=== PATIENT | female | born 1950 | race Caucasian/White ===

== ENCOUNTER 2020-09-28 16:27 | Emergency (ER) | payer MEDICARE, BC ==
[~2020-09-28] VITALS: Ht 160 cm; Wt 73.0 kg
[2020-09-28 16:42] VITALS: BP 142/86
== END 2020-09-28 17:35 | disposition left against medical advice (07) ==
LOC: ER 16:27
DX: Z53.21 Procedure and treatment not carried out due to patient leaving prior to being seen by health care provider (principal); E11.65 Type 2 diabetes mellitus with hyperglycemia; R53.1 Weakness
CPT/HCPCS: 82962; 93005

== ENCOUNTER 2024-12-14 12:37 | Inpatient (IN) | payer OTHER, MEDICARE ==
[~2024-12-14] VITALS: Ht 162.6 cm; Wt 70.8 kg
[2024-12-14 14:29] LABS: BASOPHILS % 0.8 % (0.0-2.0); EOSINOPHILS % 3.1 % (0.0-5.0); HEMATOCRIT. 35.4 % (36.0-48.0); LYMPHOCYTES % 30.5 % (20.0-50.0); MEAN CORPUSCULAR HEMOGLOBIN 30.6 pg (28.0-32.0); MEAN PLATELET VOLUME 10.4 fl (7.4-10.4); MONOCYTES % 7.9 % (2.0-8.0); NEUTROPHILS % 57.7 % (40.0-76.0); PLATELET 285 x1000/uL (130-400); RED BLOOD CELL COUNT 3.94 mill/uL (4.2-5.4); RED CELL DISTRIBUTION WIDTH 13.6 % (11.6-14.6); WHITE BLOOD COUNT 3.5 x1000/uL (4.5-11.0)
[2024-12-14 14:37] LABS: CHLORIDE 100 mEq/L (98-107); POTASSIUM 4.1 mEq/L (3.5-5.1); SODIUM 135 mEq/L (136-145)
[2024-12-14 14:38] LABS: CALCIUM 10.2 mg/dL (8.7-10.4); CARBON DIOXIDE 24 mEq/L (21-32)
[2024-12-14 14:43] LABS: CREATININE 0.9 mg/dL (0.6-1.0); UREA NITROGEN BLOOD 14 mg/dL (9-23)
[2024-12-14 14:45] LABS: ALANINE AMINOTRANSFERASE 23 IU/L (10-49); ALBUMIN 4.2 g/dL (3.2-4.8); ASPARTATE AMINOTRANSFERASE 25 IU/L (<34)
[2024-12-14 14:46] LABS: BILIRUBIN TOTAL 0.3 mg/dL (0.1-1.0); PROTEIN TOTAL 7.2 g/dL (6.0-8.3)
[2024-12-14 14:57] LABS: TROPONIN I HIGH SENSITIVITY < 4 ng/L (3.0-34)
[2024-12-14 15:03] LABS: GLUCOSE 401 mg/dL (70-105)
[2024-12-14] MEDS: INSULIN REGULAR (HUMULIN R) 1000UNITS/10ML VIAL SUBCUT SCH (16:22)
[2024-12-14] MEDS: LEVETIRACETAM 500MG PREMIX 100 ML IV ONE (16:41)
[2024-12-15] MEDS: ACETAMINOPHEN 1000MG/100ML 100 ML IV ONE (10:50)
[2024-12-15] MEDS ORDERED: IPRATROPIUM/ALBUTEROL 0.5-3(2.5)MG/3ML NEB HHN PRN (12:45)
[2024-12-15] MEDS ORDERED: DOCUSATE SODIUM 100MG CAPSULE PO PRN (12:45)
[2024-12-15] MEDS ORDERED: DEXTROSE 50% WATER 50ML SYRINGE IV PRN (12:45)
[2024-12-15] MEDS ORDERED: MAGNESIUM/ALUMINUM HYDROXIDE/SIMETHICONE 30ML UDC PO PRN (12:45)
[2024-12-15] MEDS ORDERED: GUAIFENESIN 200MG/10ML SUGAR FREE UDC PO PRN (12:45)
[2024-12-15] MEDS ORDERED: CLONIDINE 0.1MG TABLET PO PRN (12:45)
[2024-12-15] MEDS ORDERED: ACETAMINOPHEN 325MG TABLET PO PRN ×2 (12:45)
[2024-12-15] MEDS ORDERED: ONDANSETRON HCL 4MG/2ML INJ IV PRN (12:45)
[2024-12-15] MEDS ORDERED: HYDROCODONE/ACETAMINOPHEN 5/325MG TABLET PO PRN (13:15)
[2024-12-15] MEDS ORDERED: NALOXONE HCL 0.4MG/ML VIAL IV PRN (13:15)
[2024-12-15 13:35] VITALS: BP 115/69; PULSE 67; RESP 18; TEMP 36.3; TEMP 36.4; O2SAT 97
[2024-12-15] MEDS ORDERED: LEVE500T19 (14:18)
[2024-12-15] MEDS ORDERED: NPH,100V SUBCUT (14:18)
[2024-12-15 16:00] VITALS: BP 142/67; PULSE 74; RESP 18; TEMP 36.2; O2SAT 97
[2024-12-15] MEDS: BLOOD SUGAR DIAGNOSTIC STRIP TEST SCH (17:07)
[2024-12-15] MEDS ORDERED: LEVO25TA7 MT (17:12)
[2024-12-15] MEDS ORDERED: LORAZEPAM 2MG/ML INJ IV PRN (17:45)
[2024-12-15] MEDS: LEVETIRACETAM 500MG PREMIX 100 ML IV SCH (17:47)
[2024-12-15] MEDS: INSULIN LISPRO 100 UNITS/ML SUBCUT SCH (18:11)
[2024-12-15 19:10] LABS: CREATINE KINASE 29 IU/L (34-145)
[2024-12-15 19:15] LABS: TROPONIN I HIGH SENSITIVITY < 4 ng/L (3.0-34)
[2024-12-15 20:00] VITALS: BP 119/63; PULSE 73; RESP 20; TEMP 35.9; O2SAT 96
[2024-12-15] MEDS ORDERED: LEVETIRACETAM 500MG PREMIX 100 ML IV SCH (21:00)
[2024-12-16] VITALS: BP 114/68; PULSE 72; RESP 19; TEMP 36.3; O2SAT 97
[2024-12-16 00:59] LABS: CREATINE KINASE 33 IU/L (34-145)
[2024-12-16 01:31] LABS: TROPONIN I HIGH SENSITIVITY < 4 ng/L (3.0-34)
[2024-12-16 04:00] VITALS: BP 125/74; PULSE 84; RESP 18; TEMP 35.7; O2SAT 98
[2024-12-16 07:03] LABS: CALCIUM 9.8 mg/dL (8.7-10.4); CARBON DIOXIDE 26 mEq/L (21-32); CHLORIDE 102 mEq/L (98-107); POTASSIUM 4.2 mEq/L (3.5-5.1); SODIUM 139 mEq/L (136-145)
[2024-12-16 07:08] LABS: CREATININE 0.8 mg/dL (0.6-1.0); GLUCOSE 211 mg/dL (70-105)
[2024-12-16 07:09] LABS: LDL CHOLESTEROL 107 mg/dL (5-100); TRIGLYCERIDE 117 mg/dL (0-150); UREA NITROGEN BLOOD 13 mg/dL (9-23)
[2024-12-16 07:10] LABS: ALANINE AMINOTRANSFERASE 17 IU/L (10-49); ASPARTATE AMINOTRANSFERASE 18 IU/L (<34); CHOLESTEROL 160 mg/dL (<200); HDL CHOLESTEROL 32 mg/dL (>65)
[2024-12-16 07:11] LABS: BILIRUBIN TOTAL 0.5 mg/dL (0.1-1.0); PHOSPHORUS 3.2 mg/dL (2.5-4.9)
[2024-12-16 07:12] LABS: T4 FREE 1.28 ng/dL (0.89-1.76)
[2024-12-16 07:13] LABS: THYROID STIMULATING HORMONE 3.67 uIU/mL (0.55-4.78)
[2024-12-16 07:23] LABS: BASOPHILS % 1.2 % (0.0-2.0); HEMATOCRIT. 35.2 % (36.0-48.0); HEMOGLOBIN. 11.9 g/dL (12.0-16.0); LYMPHOCYTES % 33.2 % (20.0-50.0); MEAN CORPUSCULAR HGB CONC 33.7 g/dL (31.0-37.0); MEAN CORPUSCULAR VOLUME 88.9 fL (81.0-99.0); NEUTROPHILS % 51.6 % (40.0-76.0); PLATELET 298 x1000/uL (130-400); RED BLOOD CELL COUNT 3.96 mill/uL (4.2-5.4); RED CELL DISTRIBUTION WIDTH 13.8 % (11.6-14.6); WHITE BLOOD COUNT 4.7 x1000/uL (4.5-11.0)
[2024-12-16 08:00] VITALS: BP 120/75; PULSE 87; RESP 16; TEMP 36.7; O2SAT 99
[2024-12-16] MEDS: FAMOTIDINE 20MG/2ML VIAL IV SCH (09:43)
[2024-12-16] MEDS: LEVETIRACETAM 500MG TABLET PO SCH (09:43)
[2024-12-16 12:00] VITALS: BP 131/61; PULSE 80; RESP 17; TEMP 36.8; O2SAT 100
[2024-12-16 16:00] VITALS: BP 132/71; PULSE 74; RESP 17; TEMP 37.1; O2SAT 96
[2024-12-16] MEDS: LEVOTHYROXINE SODIUM 25MCG TABLET PO SCH (17:16)
[2024-12-16 20:00] VITALS: BP 138/64; PULSE 93; RESP 20; TEMP 36.2; O2SAT 96
[2024-12-17] VITALS: BP 119/69; PULSE 80; RESP 20; TEMP 36; O2SAT 99
[2024-12-17 04:00] VITALS: BP 110/69; PULSE 89; RESP 16; TEMP 36.1; O2SAT 97
[2024-12-17 08:00] VITALS: BP 110/67; PULSE 76; RESP 18; TEMP 36.5; O2SAT 98
[2024-12-17] MEDS ORDERED: KEPP500 PO (08:57)
[2024-12-17 10:15] VITALS: BP 110/67; PULSE 76; TEMP 97.7; O2SAT 98
== END 2024-12-17 11:05 | disposition home or self-care (01) | DRG 66 ==
LOC: ER 12:37 → 8WST 12-15 12:08
PROVIDERS: ADMIT Internal Medicine; ATTEND Internal Medicine
DX: I62.01 Nontraumatic acute subdural hemorrhage (principal); E05.90 Thyrotoxicosis, unspecified without thyrotoxic crisis or storm; E78.5 Hyperlipidemia, unspecified; I62.03 Nontraumatic chronic subdural hemorrhage; E11.9 Type 2 diabetes mellitus without complications; Z79.4 Long term (current) use of insulin; Z79.899 Other long term (current) drug therapy; Z86.73 Personal history of transient ischemic attack (TIA), and cerebral infarction without residual deficits; Z88.0 Allergy status to penicillin; Z98.51 Tubal ligation status
CPT/HCPCS: 36415; 71045; 80053; 80061; 82550; 82962; 83036; 83735; 84100; 84439; 84443; 84484; 85025; 92610; 93970; 97162; 97165; 99285; A4606; J1815; J1953; J3490; J0131